=== PATIENT | male | born 1985 | race Two or more races ===

== ENCOUNTER 2024-09-20 18:55 | Emergency (ER) | payer BC, OTHER ==
[2024-09-20 19:07] VITALS: BP 154/94; PULSE 73; RESP 18; TEMP 97.5; BMI 27.6
[2024-09-20 19:47] LABS: HEMATOCRIT 43.5 % (35.4-49); HEMOGLOBIN 14.9 G/dL (11.7-16.9); MCH 29.9 pg (25.7-33.7); MCHC 34.3 g/dl (32.0-35.9); MEAN CELL VOLUME 87.2 fl (80-96); MEAN PLT VOLUME 8.1 fl (7.5-11.1); PLATELET COUNT 186.9 10^3/uL (134-434); RBC 4.99 10^6/uL (4.00-5.60); RDW 13.8 % (11.9-15.9); WHITE BLOOD COUNT 5.7 10^3/uL (4.0-10.8)
[2024-09-20 19:58] LABS: ALBUMIN 4.3 g/dl (3.4-5.0); ALK PHOS 97 U/L (45-117); ANION GAP 6 mmol/L (4-13); BILIRUBIN,TOTAL 0.5 mg/dl (0.2-1); CALCIUM 9.3 mg/dl (8.5-10.1); CHLORIDE 106 mmol/L (98-107); CO2 27 mmol/L (21-32); GLUCOSE,RANDOM 119 mg/dl (74-106); POTASSIUM 3.6 mmol/L (3.5-5.1); SGOT/AST 30 U/L (15-37); SGPT/ALT 41 U/L (7-52); SODIUM 139 mmol/L (136-145); TOT PROT 6.7 g/dl (6.4-8.2)
[2024-09-20 21:18] LABS: PLATELET ESTIMATE ADEQUATE
== END 2024-09-20 22:36 | disposition home or self-care (01) ==
LOC: FER 18:55
DX: I20.89 Other forms of angina pectoris (principal)
CPT/HCPCS: 36415; 71045-TC-FY; 80053; 84484; 85027; 93005; 99285-25